=== PATIENT | male | born 1950 | race Caucasian/White ===

== ENCOUNTER → 2019-04-08 13:00 | Outpatient (CLI) | payer MEDICARE, OTHER, SELFPAY ==
--- NOTE | 2019-04-08 | DI.US.S_ITS ---
PROCEDURE: US ABD AORTA ANEURYSM SCREEN INDICATIONS: CVD TECHNIQUE: Real time scanning was performed of the aorta and iliac arteries, with image documentation. COMPARISON: None. FINDINGS: Aorta: Proximal abdominal aorta is obscured by bowel gas. Mid-aorta measures 1 point cm. Distal aortic diameter is 1.8 cm. Iliac arteries: Right common iliac artery measures 1.1 cm. Left common iliac artery measures 1.1 cm. IMPRESSION: No evidence of abdominal aortic aneurysm. However, the proximal aorta was obscured by bowel gas. Dictated by: Max Love M.D. on 04/08/2019 at 12:36 Approved by: Max Love M.D. on 04/08/2019 at 12:37
== END ==
PROVIDERS: PCP Internal Medicine; Visit Provider Internal Medicine
DX: Z13.6 Encounter for screening for cardiovascular disorders (principal)
CPT/HCPCS: 76706